=== PATIENT | female | born 1995 | race Hispanic/Latino ===

== ENCOUNTER 2017-11-23 03:29 | Emergency (ER) | payer SELFPAY | END 2017-11-23 06:50 | disposition home or self-care (01) | LOC: ERS 03:29 | DX: F10.129 Alcohol abuse with intoxication, unspecified (principal); F41.9 Anxiety disorder, unspecified; F17.210 Nicotine dependence, cigarettes, uncomplicated; Z79.899 Other long term (current) drug therapy | CPT/HCPCS: 36415; 80307; 99283 ==